=== PATIENT | male | born 1945 | race Caucasian/White ===

== ENCOUNTER → 2016-10-07 | Outpatient (CLI) | payer MEDICARE, OTHER ==
[~2016-10-07] MED LIST: AMLO5TAB2 PO; ASPI-496 PO; ATOR20TA PO; CEPH-368 PO; METO25TA35 PO; NIAC100035 PO; OMEG1CAP6 PO; PENT100C2 PO; TAMS0.4C2 PO; VALS160T3 PO
== END | disposition home or self-care (01) ==
LOC: CFH 10:01
PROVIDERS: ATTEND Internal Medicine Cardiovascular Disease
DX: I08.3 Combined rheumatic disorders of mitral, aortic and tricuspid valves (principal); I25.10 Atherosclerotic heart disease of native coronary artery without angina pectoris; I37.1 Nonrheumatic pulmonary valve insufficiency; I10 Essential (primary) hypertension; I25.2 Old myocardial infarction; Z95.5 Presence of coronary angioplasty implant and graft
CPT/HCPCS: 93306